=== PATIENT | female | born 1985 | race Caucasian/White ===

== ENCOUNTER 2025-06-21 08:51 | Emergency (ER) | payer BC, SELFPAY ==
--- OUTSIDE RECORDS SUMMARY | 2025-06-21 08:53 | XMS_ITS | Clinical Summary ---
Author Organization [facility] Address [address] [place] [id number] Care Team Providers Care Manager Social Services Name Role Phone Elsewhere, Pcp Primary Care Provider Unavailabl e Source Comments Patient records contain information from all sites at [facility]. For routine questions regarding patient records, call [phone] during business hours, M-F 8:00 AM - 5:00 PM Central Time. Record requests for emergency care only can be directed to [phone] at any time.[facility] Allergies Active Allergy Reactions Criticality Noted Date Comments [place] Other (see comments) 02/01/2020 Red skin Sumatriptan Succinate Anaphylaxis 11/24/2017 Medications No known medications Active Problems Problem Noted Date Diagnosed Date Abnormal Pap Smear Cervix 11/24/2017 Overview (11/24/2017): Overview: 06/2008; 06/2014 - Colposcopy Recommended Nicotine Dependence Unspecified 09/10/2012 Immunizations Immunization Administration Dates Next Due 4vHPV (discontinued) 11/27/2009,09/20/2008 DTaP (Infanrix, [employer]) 11/27/2009 HepB, Unspecified 02/21/2005 Influenza, Unspecified 09/18/2007 Social History Tobacco Use Types Packs/Day Years Used Date Smoking Tobacco: Every Day Cigarettes Smokeless Tobacco: Current Tobacco Cessation:Ready to Q uit: Not Asked; Counseling Given: Not Answered Alcohol Use Standard Drinks/Week Comments Yes 0 (1 standard drink = 0.6 oz pur e alcohol) Socially [facility] Utilities Answer Date Recorded In the past 12 months has [facility], gas, oil, or water company threatened to shut off services in your home? Yes 11/04/2023 Hunger Vital Sign Answer Date Recorded Within the past 12 months, y ou worried that your food would run out before you got the money to buy more. Often true Within the past 12 months, t he food you bought just didn't last and you didn't have money to get more. Sometimes true PRAPARE - Transportation Answer Date Re corded In the past 12 months, has l ack of transportation kept you from medical appointments or from getting medications? No 10/17 In the past 12 months, has l ack of transportation kept you from meetings, work, or from getting things needed for daily living? No 11/04/2023 Housing Stability Answer Date Recorded What is your living situation today? 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 Last Filed Vital Signs Vital Sign Reading Time Taken Comments Blood Pressure 108/72 11/04/2023 1:09 PM 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 Pulse 76 02/01/2020 1:37 PM CDT Temperature 36.5 C (97.7 F) 11/04/2023 1:09 PM 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 Respiratory Rate 18 11/04/2023 1:09 PM 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 Oxygen Saturation 100% 11/04/2023 1:09 PM 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 Room air Inhaled Oxygen Concentration - - Weight 54.4 kg (119 lb 14.9 oz) 11/04/2023 1:09 PM 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 Height 157.8 cm (5' 2.13) 11/24/2017 1 0:48 AM 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 Body Mass Index 21.85 11/24/2017 10:48 AM 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 Plan of Treatment Health Maintenance Due Date Last Done Comments Cervical/Vaginal Cancer Screening 1983 HIV Screening 1983 Hepatitis C Screening 1983 Mammogram 1983 Tobacco Cessation counseling 1983 Pneumococcal vaccine (0-49 years) (1 of 2 - PCV) 2002 DTaP,Tdap,and Td Vaccines (3 - Tdap) 11/27/2019 11/27/2009, 11/27/2009, 03/07/1995 Lipid (Cholesterol) Screening 12/10/2023 12/10/2018 COVID-19 Vaccine (2023-2 5 season) 2024 Depression Screening (Annual PHQ-2) 11/17/2024 Influenza Vaccine (#1) 2025 09/18/2007 Hepatitis B Vaccines Completed 02/21/2005, 10/09/2001, 08/14/2001 HPV Vaccines Completed 09/10/2012, 11/27/2009, 09/20/2008 IPV Vaccines Aged Out No longer eligi ble based on patient's age to complete this topic Insurance [facility] Care Teams Manager Social Services Relationship Specialty Start Date End Date Elsewhere, Pcp PCP - General 12/06/19
--- OUTSIDE RECORDS SUMMARY | 2025-06-21 08:53 | XMS_ITS | Clinical Summary ---
Author Organization [facility] Address [address] [place] [id number] Care Team Providers Care School Counselor Name Role Phone Ariane Street Primary Care Provider [phone] Allergies Active Allergy Reactions Criticality Noted Date Comments Sumatriptan Shortness Of Breath 04/10/2007 (imitrex) Medications omeprazole 20 mg Delayed-Releas e capsule Take 20 mg by mouth once daily if needed for GI Upset. Active methocarbamoL 500 mg tabletIndicati ons:Muscle spasm Take 1 Tablet (500 mg) by mouth every 6 hours if needed for Muscle Spasm. 30 Tablet 06/09/20 25 Active acetaminophen 500 mg tabletIndicati ons:Closed fracture of multiple ribs of left side, initial encounter Take 2 Tablets (1,000 mg) by mouth four times daily. Max acetaminophen dose: 4000mg in 24 hrs. 30 Tablet 03/08/2025 1:16 PM CDT 03/08/20 025 Discontin ued(*Med complete/ Regimen complete/ Level of care change) lidocaine 4 % topical patchIndicatio ns:Closed fracture of multiple ribs of left side, initial encounter Apply to intact skin to cover most painful area for max 12hr per 24hr period. 14 Patch 03/08/2025 1:16 PM CDT 03/09/20 25 025 Discontin ued(*Med complete/ Regimen complete/ Level of care change) nicotine 2 mg lozengeIndicat ions:Tobacco use disorder Place 1 Lozenge (2 mg) in mouth, between cheek & gum every hour while awake as needed for Nicotine Craving. 48 Each 03/08/2025 1:16 PM CDT 03/08/20 25 025 Discontin ued(*Med complete/ Regimen complete/ Level of care change) sennosides 8.6 mg tabletIndicati ons:Closed fracture of multiple ribs of left side, initial encounter Take 2 Tablets (17.2 mg) by mouth 2 times daily if needed for Constipation. 30 Tablet 03/08/2025 1:16 PM CDT 03/08/20 25 025 Discontin ued(*Med complete/ Regimen complete/ Level of care change) ibuprofen 600 mg tabletIndicati ons:Closed fracture of multiple ribs of left side, initial encounter Take 1 Tablet (600 mg) by mouth 3 times daily if needed for Pain. Maximum of 3200 mg in 24 hours. 30 Tablet 03/08/2025 1:16 PM CDT 03/08/20 25 025 Discontin ued(*Med complete/ Regimen complete/ Level of care change) traMADoL 50 mg tabletIndicati ons:Closed fracture of multiple ribs of left side with routine healing, subsequent encounter Take 1 Tablet (50 mg) by mouth 2 times daily if needed for Pain. 40 Tablet 03/10/20 25 025 Discontin ued(*Med complete/ Regimen complete/ Level of care change) hydrOXYzine HCL 10 mg tabletIndicati ons:Anxiety Take 1 Tablet (10 mg) by mouth every 6 hours if needed for Anxiety. 30 Tablet 2 03/10/20 25 025 Discontin ued(*Med complete/ Regimen complete/ Level of care change) methocarbamoL 500 mg tabletIndicati ons:Closed fracture of multiple ribs of left side, initial encounter Take 1.5 Tablets (750 mg) by mouth four times daily. 20 Tablet 03/17/20 25 025 Discontin ued(*Med complete/ Regimen complete/ Level of care change) Active Problems Problem Noted Date Diagnosed Date Adnexal mass 06/07/2025 High-risk human papillomavir us (HPV) DNA detected in cervical specimen, not type 16 or 18 05/25/2025 Overview (05/25/2025): 06/2008 LSIL 09/2008 Dennis: cervicitis 11/2009 NIL 12/2010 ASCUS/HPV negative 03/2013 NIL 06/2014 LSIL 11/2018 NIL/HPV negative 04/2025 UNS/HPV+, HPV 16/18 negative Plan: Repeat Pap no later than 4 months Ovarian cyst, right 03/06/2025 Traumatic pneumothorax 03/06/2025 Hemothorax on left 03/06/2025 Closed fracture of multiple ribs of left side Tobacco use disorder 09/10/2012 Neurodermatitis 04/13/2007 Dysthymic disorder 12/01/2006 Resolved Problems Problem Noted Date Diagnosed Date Resolved Date Headache(784.0) 12/01/2006 04/13/2007 Encounters Date Type Department Care Team Description 06/21/2025 Nurse Triage [facility] [address] [place] [address] PA Questions 06/21/2025 Telephone [facility] [address] [facility] [address] [place] [address] Damián Osborn MD Questions (surgery) 06/20/2025 Telephone [facility] [address] [facility] [address] [place] [address] Damián Osborn MD Questions (Surgery on 06/22/2025) 06/07/2025 Telephone [facility] [address] [place] [address] PA Refill Request (methocarbamoL 500 mg tablet /) 05/25/2025 Telephone [facility] [address] [place] [address] Damián Osborn MD Pap Plan 05/24/2025 2:50 PM CDT Office Visit [facility] [address] [place] [address] PA Preoperative Exam ([place]-Dr. Osborn-06/22/25-[place] py) 05/24/2025 Travel 05/06/2025 Telephone [facility] [address] [place] [address] Damián Osborn MD Questions (PRE OP ) 05/04/2025 Telephone [facility] [address] [place] [address] Damián Osborn MD Surgery Scheduled 05/03/2025 3:40 PM CDT Office Visit [facility] [address] [place] [address] Damián Osborn MD Consult (Right ovarian cyst) 05/03/2025 Travel 05/02/2025 Orders Only [facility] [address] [place] [address] PA <No scans attached> 04/29/2025 1:45 PM CDT Ancillary Procedure [facility] [address] [place] [address] 04/29/2025 Travel from Last 3 Months Immunizations Immunization Administration Dates Next Due Hepatitis B (Adult) 02/21/2005,10/09/2001,2000 Human Papilloma Virus Vaccine 09/10/2012, 010,09/20/2008 Influenza, IIV3 (Age >=3 years) 09/18/2007 Td (Age >=7 Years) 03/07/1998 Tdap 11/27/2009 Family History Medical History Relation Name Comments Heart attack Father , wa s using drugs Cancer-breast Maternal Aunt Cancer Maternal Grandmother non-Hod gkins lymphoma No Known Problems Mother Diabetes Paternal Aunt Diabetes Paternal Grandmother Heart Disease Paternal Grandmother Relation Name Status Comments Father Maternal Aunt Maternal Grandmother Mother Paternal Aunt Paternal Grandmother Social History Tobacco Use Types Packs/Day Years Used Date Smoking Tobacco: Former Cigarettes Q uit: 11/14/2014 Smokeless Tobacco: Never Tobacco Cessation:Counseling Given: Not Answered Comments:ready to quit Alcohol Use Standard Drinks/Week Comments Yes 0 (1 standard drink = 0.6 oz pur e alcohol) occassionally PHQ-2 Answer Date Recorded PHQ-2 TOTAL SCORE 1 05/24/2025 Social Connections Answer Date Recorded Do you often feel lonely or isolated from those around you? 0 03/07/2025 Financial Resource Strain Answer Date R ecorded Difficulty of Paying Living Expenses 3 03/07/2025 Difficulty of Paying Living Expenses Not on file 03/07/2025 Food Insecurity Answer Date Recorded Do you worry your food will run out before you are able to buy more? 1 03/15/2025 Transportation Needs Answer Date Record ed Does lack of transportation keep you from medica l appointments? 1 03/15/2025 Does lack of transportation keep you from work, meetings or getting things that you need? 1 03/15/2025 Housing Stability Answer Date Recorded What is your housing situation today? 1 03/15/2025 Interpersonal Safety Answer Date Record ed Are you being hit, kicked, p ushed or yelled at (see row info)? No 03/07/2025 Interpersonal Safety Abuse 12 - 18 Not on file 03/07/2025 Interpersonal Safety Ambulatory Vulnerability No t on file 03/07/2025 Utilities Answer Date Recorded Do you have trouble paying f or utilities (for example, heat, electricity, water, phone)? 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 Gender Identity Not on file Sexual Orientation Not on file Occupation Industry Job Start Date Job End Date Not on file Not on file Not on file Not on file Not on file Not on file Not on file Not on file Obstetrics History Para Term AB IAB SAB Ectopic Multiple Livin g Live Births 3 2 2 0 1 0 0 1 0 2 3 Date Outcome GA Total Labor Labor/2nd/3rd Weight Sex Type Anes PTL Shira A1 A5 Name Clin 2001 Term 37w 0d 3.26 kg (7 lb 3 oz) F VAGINA L VACU Intrat hecal Livin g 8 9 [place] Delivery Location:[facility] 2006 Ectopic ECTOPI C Decea sed 2007 Term 39w 0d 3.46 kg (7 lb 10 oz) M Vag Intrat hecal Livin g 8 9 Jaedy n [place] Delivery Location:[facility] Last Filed Vital Signs Vital Sign Reading Time Taken Comments Blood Pressure 112/77 05/24/2025 2:39 PM CDT Pulse 88 05/24/2025 2:39 PM CDT Temperature 36.9 C (98.4 F) 03/08/2025 7:51 AM CDT Respiratory Rate 18 03/08/2025 7:51 AM CDT Oxygen Saturation 98% 05/24/2025 2:39 PM CDT Inhaled Oxygen Concentration - - Weight 60.3 kg (133 lb) 05/24/2025 2:39 PM CDT Height 157 cm (5' 1.81) 05/24/2025 2:39 PM CDT Body Mass Index 24.48 05/24/2025 2:39 PM CDT Plan of Treatment Upcoming Encounters Date Type Department Care Team (Latest Contact Info) Description 06/22/2025 7:15 AM CDT Hospital Encounter [address] [address] Damián Osborn MD [address] [place] [id number] Adnexal mass (Primary Dx) 06/22/2025 7:15 AM CDT - 06/22/2025 9:36 AM CDT Surgery [address] [address] Damián Osborn MD [address] [place] [address] [phone] Robot assisted laparoscopic right ovarian cystectomy, bilateral salpingectomy 07/12/2025 2:20 PM CDT Office [place] [facility] [address] [place] [address] Damián Osborn MD [address] [place] [address] [phone] Scheduled Procedures Name Priority Associated Diagnoses Date/Ti me ROBOTIC ASSISTED LAPAROSCOPIC DIAGNOSTIC XI Tier 3: within 90 days Adnexal mass 06/22/2025 7:15 AM CDT Health Maintenance Due Date Last Done Comments Tetanus booster 11/27/2019 11/27/2009, 03/07/1998 COVID-19 vaccine series (2023- season) 2024 Influenza Vaccine (#1) 2025 09/18/2007 Pap test for age 21-65 08/03/2025 , 12/10/2018, 12/10/2018, Additional history exists BMI (ht and wt on same day) for age 18+ 05/24/2026 05/24/2025, 02/15/2019, 02/04/2019, Additional history exists Depression screening for age 12+ 05/24/2026 05/24/2025, 03/24/2019, 12/10/2018, Additional history exists Hepatitis B series for 19+ Completed 02/21, 10/09/2001, 08/14/2001 HIV for age 15-65 Completed 07/07/2014, 09/18/2007 Hepatitis C screening for age 18-79 Completed 07/07/2014 Pneumococcal series for age 6-49 Aged Out No longer eligible based on patient's age to complete this topic Goals Goal Patient Goal Type Associated Problems Recent Progress Patient-Stated? Author Autogenera edith Goal Care Plan Autogenerated Problem No Feli Orellana, [facility] Procedures Procedure Name Priority Date/Time Associated Diagnosis Comments PATHOLOGY LABORATORY DIRECTOR THIN PREP PAP SCREEN IMAGED- Unsuccessful Attempt Routine 05/03/2025 4:31 PM CDT Screening for cervical cancer HPV HIGH RISK Routine 05/03/2025 4:31 PM CDT Screening for cervical cancer US PELVIS COMPLETE TA AND TV Routine 04/29/2025 2:15 PM CDT Right ovarian cyst ANTI HIV 1/2 Routine 07/07/2014 2:11 PM CDT Screening for STDs (sexually transmitted diseases) ANTI HCV Routine 07/07/2014 2:11 PM CDT Screening for STDs (sexually transmitted diseases) from Last 3 Months or Most Recently Relevant to Health Maintenance Results * PATHOLOGY LABORATORY DIRECTOR THIN PREP PAP SCREEN IMAGED (05/03/2025 4:31 PM CDT) - Unsuccessful Attempt Case Report Gynecologic Cytology Report Case: [id number] Authorizing Provider: Damián Osborn MD Collected: 05/03/2025 1631 Ordering Location: [facility] Received: 05/03/2025 1632 Clinic First Screen: Baccam Minie Rescreen: Nicolette Reid Specimen: PATHOLOGY LABORATORY DIRECTOR ThinPrep Vial Screening, Cervical 05/25/2025 8:00 AM CDT [facility] INTERPRETATION /RESULT UNSATISFACTORY FOR EVALUATION (UNS) (none) 05/25/2025 8:00 AM CDT [facility] at 0800 CDT ORGANISM(S) Shift in lobito suggestive of bacterial vaginosis 05/25/2025 8:00 AM CDT [facility] SPECIMEN ADEQUACY Specimen processed and examined, but unsatisfactory for evaluation of epithelial abnormality because of: Scant cellularity 05/25/2025 8:00 AM CDT [facility] HPV REQUEST HPV and PAP 05/25/2025 8:00 AM CDT [facility] Date of LMP 04/29/2025 05/25/2025 8:00 AM CDT [facility] Last Pap Date 12/10/18 05/25/2025 8:00 AM CDT [facility] Last Pap Result NIL 05/25/2025 8:00 AM CDT [facility] Abnormal Pap or Dennis Bx in last 5 years No 05/25/2025 8:00 AM CDT [facility] Menstrual Status Regular Periods 05/25/2025 8:00 AM CDT [facility] Dennis Bx Done Today No 05/25/2025 8:00 AM CDT [facility] Additional Information None given 05/25/2025 8:00 AM CDT [facility] Comment: Cytology is screened at [facility] - [address], [place] [address] and [facility] - [address] [place] [address], [place] [address] and [facility] - [address] [place] [address] Interpreted at [facility] - [address], [place] [address] Automated Review Failed 05/25/2025 8:00 AM CDT [facility] Comment:Processing failed, m anual screening required. ThinPrep Imaging System, [employer] ANCILLARY TESTING PATHOLOGY LABORATORY DIRECTOR HPV Ordered, Please see separate report 05/25/2025 8:00 AM CDT [facility] Note The pap test is a screening technique, not a diagnostic procedure. It is used primarily to screen for squamous cancers and precursor lesions. Published studies have shown that it is subject to both false negative and false positive results. The pap test should not be used as the sole means to diagnose or exclude pre-malignant and malignant lesions. 05/25/2025 8:00 AM CDT [facility] Other (Cervical) Non-Blood / Unknown 05/03/2025 4:31 PM CDT 05/03/2025 4:32 PM CDT us Damián Osborn MD PATHOLOGY/CYTOLOGY Final Resul t [facility] [address] [place] [address], * (ABNORMAL) HPV HIGH RISK (05/03/2025 4:31 PM CDT) TYPE 16 Negative Negative 05/06/2025 2:36 PM CDT [facility] TYPE 18 Negative Negative 05/06/2025 2:36 PM CDT [facility] OTHER HIGH RISK TYPES Positive(A) Negative 05/06/2025 2:36 PM CDT [facility] Other (Cervical) Non-Blood / Unknown 05/03/2025 4:31 PM CDT 05/04/2025 2:[address] [facility] - 05/06/2025 2:36 PM CDT Specimen is positive for the DNA of any one of, or combination of, the following high risk HPV types: 31, 33, 35, 39, 45, 51, 52, 56, 58, 59, 66, 68. HPV types 16 and 18 DNA were undetectable or below the pre-set threshold. Methodology: Justa Nady[employer] 4800 HPV Test us Damián Osborn MD MICROBIOLOGY Final Result [facility] [address] [place] [address], [place] * US PELVIS COMPLETE TA AND TV (04/29/2025 2:15 PM CDT) Anatomical Region Laterality Modality Pelvis Ultrasound 04/29/2025 3:34 PM CDT Impressions 04/29/2025 3:34 PM CDT 9.3 cm simple right ovarian cyst. Follow-up ultrasound in 12 months recommended. Dictated by Damián Lomas MD @ 04/29/2025 3:34:59 PM (Electronically Signed) Narrative 04/29/2025 3:34 PM CDT For Patients: As a result of the Cures Act, medical imaging exams and procedure reports are released immediately into your electronic medical record. You may view this report before your referring provider. If you have questions, please contact your health care provider. INDICATION: Right ovarian cyst COMPARISON: CT 02/05/2019 TECHNIQUE: 2D adair-scale and color Doppler images were acquired of the pelvis using a transabdominal and transvaginal approach. Transvaginal imaging performed to better visualize the endometrial stripe and ovaries. FINDINGS: Sonographic images demonstrate a normal size and smooth outer contour of the uterus. Uterus measures 8.3 cm in length by 4.9 cm in AP diameter by 3.5 cm in transverse dimension. The myometrium has a normal uniform echotexture. The endometrial lining appears normal and measures 6 mm in composite thickness. The right ovary measures 10.2 x 7.6 x 6.9 cm in size and the left ovary measures 2.7 x 1.2 x 1.2 cm. The ovaries demonstrate normal arterial and venous blood flow on color Doppler analysis. There are no suspicious fluid collections within the cul-de-sac. Large circumscribed anechoic right ovarian cyst measures 9.3 x 6.9 x 6.0 cm. No internal blood flow and no papillary projection. Procedure Note Damián Lomas MD - 04/29/2025 For Patients: As a result of the Century Cures Act, medical imagingexams and procedure reports are released immediately into your electronicmedical record. You may view this report before your referring provider.If you have questions, please contact your health care provider. INDICATION: Right ovarian cyst COMPARISON: CT 02/05/2019 TECHNIQUE: 2D adair-scale and color Doppler images were acquired of the pelvis using atransabdominal and transvaginal approach. Transvaginal imaging performedto better visualize the endometrial stripe and ovaries. FINDINGS: Sonographic images demonstrate a normal size and smooth outer contour ofthe uterus. Uterus measures 8.3 cm in length by 4.9 cm in AP diameter by3.5 cm in transverse dimension. The myometrium has a normal uniformechotexture. The endometrial lining appears normal and measures 6 mm incomposite thickness. The right ovary measures 10.2 x 7.6 x 6.9 cm in size and the left ovarymeasures 2.7 x 1.2 x 1.2 cm. The ovaries demonstrate normal arterial andvenous blood flow on color Doppler analysis. There are no suspicious fluidcollections within the cul-de-sac. Large circumscribed anechoic rightovarian cyst measures 9.3 x 6.9 x 6.0 cm. No internal blood flow and nopapillary projection. IMPRESSION: 9.3 cm simple right ovarian cyst. Follow-up ultrasound in 12 monthsrecommended. Dictated by Damián Lomas MD @ 04/29/2025 3:34:59 PM (Electronically Signed) us Ariane CURRIE Final Resu lt * ANTI HCV (07/07/2014 2:11 PM CDT) HEPATITIS C ANTIBODY Non-Reacti ve Non-Reacti ve 07/07/2014 7:44 PM CDT [facility] Blood specimen (specimen) BLOOD SPECIMEN / Unknown Venipuncture / Unknown 07/07/2014 2:11 PM CDT 07/07/2014 2:11 PM CDT Narrative [facility] - 07/07/2014 7:44 PM CDT Antibodies to HCV not detected; does not exclude the possibility of exposure to HCV. Michelle Downs TAN ROOM SUPERVISOR SEND OUTS Final Result [facility] [address] [place] [address], * ANTI HIV 1/2 (07/07/2014 2:11 PM CDT) HIV-1/HIV-2 ANTIBODY Non-Reacti ve Non-Reacti ve 07/07/2014 7:41 PM CDT [facility] Blood specimen (specimen) BLOOD SPECIMEN / Unknown Venipuncture / Unknown 07/07/2014 2:11 PM CDT 07/07/2014 2:11 PM CDT Narrative [facility] - 07/07/2014 7:41 PM CDT HIV-1 p24 and HIV-1/HIV-2 Ab not detected Michelle Downs NP SEND OUTS Final Result Performing Organization Address City/[facility]/ZIP Co de Phone Number [facility] [address] [place] [address], from Last 3 Months or Most Recently Relevant to Health Maintenance Additional Health Concerns Active Problems Noted Date Diagnosed Date Autogenerated Problem 05/04/2025 [place] [address] Advance Directives * Full Code (Latest Code Status on File) Date Activated Date Inactivated Comments 03/06/2025 3:52 PM 03/08/2025 3:40 PM Question Answer Comments Code Status Discussion: Reviewed Preferences * Full Code Date Activated Date Inactivated Comments 03/18/2011 6:13 AM 03/18/2011 12:29 PM Care Teams School Counselor Relationship Specialty Start Date End Date [address] [place] [address] [place] [address] PCP - General Physician Portal Developer 05/26/25
[2025-06-21 08:58] VITALS: BP 100/68; PULSE 78; RESP 18; TEMP 36.3; O2SAT 99; BMI 25.6
--- NOTE | 2025-06-21 09:08 | CRLHL7_ITS ---
For Patients: As a result of the Century Cures Act, medical imaging exams and procedure reports are released immediately into your electronic medical record. You may view this report before your referring provider. If you have questions, please contact your health care provider. INDICATION: Right-sided pelvic pain. TECHNIQUE: Ultrasound pelvis transabdominal and transvaginal for better assessment or to better visualize the endometrium. Real-time sonographic images with spectral and color Doppler imaging of the ovaries were obtained. COMPARISON: Pelvic ultrasound 04/29/2025 FINDINGS: Uterus: 8.1 x 3.7 x 5.1 cm. Normal echotexture of the myometrium. No masses. Endometrium: Transvaginal imaging was performed to better evaluate the endometrium. Endometrial thickness measures 10 mm. No sign of endometrial mass or fluid. Right ovary measures 10 x 6.8 x 8.4 centimeters including the large cyst. Left ovary measures 3 x 1.8 x 1.9 centimeters. The right ovarian cyst measures 9.7 x 7.7 x 6.4 centimeters, previously 9.3 x 6.9 x 6 centimeters. Normal arterial and venous blood flow is demonstrated in both ovaries. Cul-de-sac: No significant free fluid. IMPRESSION: Increased size of the right simple ovarian cyst, though differences are likely due to measurement technique (O-RADS 2). Size of the cyst increases risk for ovarian torsion, though there is no evidence of ovarian torsion. Dictated by Yady Bazan MD @ 06/21/2025 10:26:40 AM (Electronically Signed)
[2025-06-21 09:11] LABS: Appearance Urine Clear (Clear)
--- NOTE | 2025-06-21 09:27 | ED.FEMALEGU ---
HPI - Female Genitourinary General Date Seen: 06/21/25 Chief complaint: Urogenital Problems, Female Stated complaint: Ovarian pain Time Seen by Provider: 06/21/25 09:04 Source: patient Mode of arrival: ambulatory Limitations: no limitations History of Present Illness HPI Narrative: Patient is a 40-year-old female presenting to the emergency department for right pelvic pain. She states she began to have this pain that started this morning at 03:30. It woke her up from sleep. She has never had pain like this before. States she knows she has a 9.3 cm right ovarian since that was found incidentally and she is actually scheduled to have surgery to remove it tomorrow up in [place]. She has never had any pain from this cyst before. She took a tramadol which makes the pain bearable but is still quite severe she states. Initially went to urgent care and was sent to the emergency department for imaging. Denies fevers, chills, chest pain, shortness of breath, flank pain, dysuria, polyuria. No other concerns noted at this time. Previous abdominal surgeries include removal of her fallopian tubes indurated Related Data Home Medications ?Medication ?Instructions ?Recorded ?Confirmed acetaminophen [Tylenol] PO 04/29/24 06/21/25 ibuprofen PO 04/29/24 06/21/25 omeprazole [Prilosec] PO 04/29/24 06/21/25 tramadol PO 04/29/24 06/21/25 Allergies Allergy/AdvReac Type Severity Reaction Status Date / Time almond Allergy Verified 06/21/25 10:57 latex Allergy Verified 06/21/25 10:57 sumatriptan (From Imitrex) Allergy Verified 06/21/25 10:57 Review of Systems Status of ROS: Reports: 10 or more systems reviewed and unremarkable except as noted in History and below Exam Narrative: Exam Narrative: Const: Well-nourished, Well-developed, in a moderate distress Eyes: PERRL, no conjunctival injection, and symmetrical lids HENT: Atraumatic external nose and ears. Moist mucous membranes. Neck: Symmetric, trachea midline, No thyromegaly. CVS: RRR, No murmurs or gallops. Peripheral pulses 2+ and equal in all extremities RESP: Unlabored respiratory effort. Clear to auscultation bilaterally. GI: Nontender/Nondistended, No rebound or guarding. : right pelvic tenderness MSK:Extremities w/o deformity, Normal Active ROM Skin: Warm, Dry. No rashes or lesions. Neuro: Normal Muscle tone, No focal neurological deficits. Psych: Awake, Alert, & Oriented x3. Appropriate mood and affect. Const: Vital Signs, click to edit/add: Vital Signs - 24 hr 06/21/25 08:58 Temperature 97.3 F L Pulse Rate [Pulse Oximeter] 78 Respiratory Rate 18 Blood Pressure [Ri t Upper Arm] 100/68 Pulse Oximetry 99 Oxygen Delivery Me thod Room Air Course Vital Signs Vital signs: Initial Vital Signs Temperature 97.3 F L 06/21/25 08:58 Temperature Source Temporal Artery Scan 06/21/25 08:58 Pulse Rate 78 06/21/25 08:58 Respiratory Rate 18 06/21/25 08:58 Blood Pressure 100/68 06/21/25 08:58 Blood Pressure Mean 78 06/21/25 08:58 Pulse Oximetry 99 06/21/25 08:58 Oxygen Delivery Method Room Air 06/21/25 08:58 Vital Signs Temperature 97.3 F L 06/21/25 08:58 Pulse Rate 78 06/21/25 08:58 Respiratory Rate 18 06/21/25 08:58 Blood Pressure 100/68 06/21/25 08:58 Pulse Oximetry 99 06/21/25 08:58 Oxygen Delivery Method Room Air 06/21/25 08:58 Temperature 97.3 F L 06/21/25 08:58 Pulse Rate 78 06/21/25 08:58 Respiratory Rate 18 06/21/25 08:58 Blood Pressure 100/68 06/21/25 08:58 Pulse Oximetry 99 06/21/25 08:58 Oxygen Delivery Method Room Air 06/21/25 08:58 Medications Administered Medications: Discontinued Medications Generic Name Dose Route Start Last Admin Trade Name Freq PRN Reason Stop Dose Admin Morphine Sulfate 4 mg 06/21/25 10:34 06/21/25 10:48 Morphine 4 Mg/Ml Inj IVP 06/21/25 10:35 4 mg ONCE ONE Administration MDM - Female Genitourinary MDM Narrative Medical decision making narrative: Patient is a 40-year-old female presenting for right lower quadrant/right pelvic pain. Some much pain she was having I was concerned about ovarian torsion and immediately ordered an ultrasound. Patient went to get her ultrasound. Did order CBC, BMP, urinalysis also. Other differentials includes appendicitis, colitis, ovarian abscess, hemorrhagic cyst. Based on location seems unlikely to be gallbladder/liver disease, pancreatitis, diverticulitis. Patient states she is unable to get due to previous removal of her fallopian tube. Ultrasound returned showing a previous seen cyst. Patient is still having hip pain while doing ultrasound and I do not believe this is an intermittent torsion. Will do a CT scan for better evaluation of any possible causes. Lab work shows no concerning findings. Did give her morphine for pain which made her feel much better. CT scan returned showing nonspecific diffuse mild colonic edema. Considering how localized her pain is this seems unlikely to be related to her symptoms and is an incidental finding. I do believe her pain is most likely from with Marge test and I do believe he is safe for discharge. Will provide oxycodone be instymeds to get her through till her surgery tomorrow. She did develop some heartburn after the CT scan him a GI cocktail was given. She is agreeable to this plan. Lab Data Labs: Lab Results 06/21/25 06/21/25 Range/Units 09:05 09:23 WBC 9.19 (4.50-11.00) K/uL RBC 3.81 L (4.00-5.20) m/uL Hgb 12.3 (12.0-16.0) gm/dL Hct 37.5 (33.0-51.0) % MCV 98 (80-100) fL MCH 32 (26-34) pg MCHC 33 (32-36) gm/dL RDW Coeff of Leticia 13.3 (11.5-15.5) % Plt Count 281 (140-440) K/uL Neut % (Auto) 78.8 H (42.0-72.0) % Lymph % (Auto) 12.1 L (20-44) % [place] % (Auto) 8.7 (0.0-11.0) % Eos % (Auto) 0.1 (0.0-7.0) % Baso % (Auto) 0.2 (0.0-3.0) % Neut # (Auto) 7.20 H (1.7-7.0) K/uL Lymph # (Auto) 1.10 (0.90-2.90) K/uL [place] # (Auto) 0.80 (0.00-0.90) K/UL Eos # (Auto) 0.01 (0.00-0.50) K/uL Baso # (Auto) 0.02 (0.00-0.30) K/uL Abs Immat Gran (auto) 0.01 (0.00-0.30) K/uL Imm/Tot Granulo (auto) 0.1 % Sodium 135 (135-149) mmol/L Potassium 3.6 (3.6-5.1) mmol/L Chloride 105 (96-114) mmol/L Carbon Dioxide 25 (20-32) mmol/L Anion Gap 5 L (7-15) mEq/L BUN 7 (5-24) mg/dL Creatinine 0.5 (0.5-1.5) mg/dL Estimated Creat Clear 110.60 Estimated GFR 120 ml/min Glucose 112 (60-115) mg/dL Calcium 9.1 (8.4-10.6) mg/dL Urine Color Yellow (Yellow) Urine Appearance Clear (Clear) Urine pH 5.5 (5.0-8.5) Ur Specific [place] 1.020 (1.000-1.030) Urine Protein Negative (Negative) Urine Glucose (UA) Negative (Negative) Urine Ketones 2+ A (Negative) Urine Blood Negative (Negative) Urine Nitrite Negative (Negative) Urine Bilirubin Negative (Negative) Urine Urobilinogen 0.2 (0.2-1.0) Ur Leukocyte Esterase Negative (Negative) Urine RBC 0-2 (0-2) Urine WBC 0-2 (0-5) Ur Squamous Epith Cells Few (None-Few) Urine Bacteria None (None) Imaging Data Pelvic/transvaginal ultrasound: Attestation: I have reviewed the pertinent imaging results. Radiologist's impression: Increased size of the right simple ovarian cyst, though differences are likely due to measurement technique (O-RADS 2). Size of the cyst increases risk for ovarian torsion, though there is no evidence of ovarian torsion. Dictated by Yady Bazan MD @ 06/21/2025 10:26:[address] scan abdomen pelvis: Attestation: I have reviewed the pertinent imaging results. Radiologist's impression: 1. Mild submucosal edema is seen throughout the colon. Findings may represent infectious or inflammatory colitis. 2. Redemonstration of 9.9 x 8.3 centimeter pelvic cystic lesion, better characterized on same day ultrasound. Please note that all CT scans at this facility use dose modulation, iterative reconstruction, and/or weight-based dosing when appropriate to reduce radiation dose to as low as reasonably achievable. Dictated by Thomas Chapman MD @ 06/21/2025 11:15:26 AM Discharge Plan Discharge Clinical Impression: Cyst of right ovary Patient Disposition: Home, Self-Care Condition: Improved Instructions: Ovarian Cyst (ED) Additional Instructions: Take the Percocet as needed for pain. Return to emergency department for new or worsening symptoms. There was some mild diffuse edema of your colon. I do not believe this is was acutely causing her issues. Is very well may not be of any concern for any signs of infection/inflammatory colitis. If he continue to have issues I do recommend close follow-up with your primary care provider for possible colonoscopy. Prescriptions: No Action acetaminophen [Tylenol] PO ibuprofen PO omeprazole [Prilosec] PO tramadol PO Follow Up/Referrals: Provider,Not a Local [Primary Care Provider, Family Practice] Stand Alone Forms: [facility] Info Instructions
[2025-06-21 09:29] LABS: Hematocrit 37.5 % (33.0-51.0); Hemoglobin* 12.3 gm/dL (12.0-16.0); Immature Granulocytes Abs Auto 0.01 K/uL (0.00-0.30); Immature Granulocytes Pct Auto 0.1 %; Mean Corpuscular HGB Conc 33 gm/dL (32-36); Mean Corpuscular Hemoglobin 32 pg (26-34); Mean Corpuscular Volume 98 fL (80-100); RDW Coefficient of Variation % 13.3 % (11.5-15.5); Red Blood Count 3.81 m/uL (4.00-5.20); White Blood Count* 9.19 K/uL (4.50-11.00)
[2025-06-21 09:32] LABS: Lymphocytes Absolute Auto 1.10 K/uL (0.90-2.90)
[2025-06-21 09:33] LABS: Slide Review Reflex No
[2025-06-21 09:43] LABS: Chloride* 105 mmol/L (96-114); Potassium* 3.6 mmol/L (3.6-5.1); Sodium* 135 mmol/L (135-149)
[2025-06-21 09:46] LABS: Blood Urea Nitrogen* 7 mg/dL (5-24); Creatinine* 0.5 mg/dL (0.5-1.5); Est. Creatinine Clearance* 110.60; Estimated Glomerular Filt Rate 120 ml/min
[2025-06-21 09:47] LABS: Anion Gap 5 mEq/L (7-15); Calcium* 9.1 mg/dL (8.4-10.6); Carbon Dioxide* 25 mmol/L (20-32); Glucose* 112 mg/dL (60-115)
--- NOTE | 2025-06-21 10:34 | CRLHL7_ITS ---
For Patients: As a result of the Century Cures Act, medical imaging exams and procedure reports are released immediately into your electronic medical record. You may view this report before your referring provider. If you have questions, please contact your health care provider. INDICATION: RLQ PAIN TECHNIQUE: CT of the abdomen and pelvis was obtained with 66 mL of Isovue 370 intravenous contrast. Please note that all CT scans at this facility use dose modulation, iterative reconstruction, and/or weight-based dosing when appropriate to reduce radiation dose to as low as reasonably achievable. COMPARISON: Same day ultrasound. FINDINGS: Lower thorax: Subacute left-sided rib fractures. Liver and biliary tree: Normal. Gallbladder: Status post cholecystectomy. Spleen: Normal. Pancreas: Normal. Adrenal glands: Normal. Kidneys and ureters: No hydronephrosis or obstructing renal calculi. Subcentimeter hypoattenuating lesions are too small to characterize and are favored to represent cysts. Gastrointestinal tract: Mild submucosal edema is seen throughout the colon. Moderate stool burden in the transverse colon. No evidence of bowel obstruction. Peritoneal cavity: Trace free fluid is seen within the pelvis. Bladder: Decompressed. Pelvic organs: 9.9 x 8.3 centimeter pelvic cystic lesion (2/103). Vasculature: Normal. Lymph nodes: Normal. Abdominal wall: Trace fat containing periumbilical hernia. Musculoskeletal: Mild degenerative changes of the bilateral hips. IMPRESSION: 1. Mild submucosal edema is seen throughout the colon. Findings may represent infectious or inflammatory colitis. 2. Redemonstration of 9.9 x 8.3 centimeter pelvic cystic lesion, better characterized on same day ultrasound. Please note that all CT scans at this facility use dose modulation, iterative reconstruction, and/or weight-based dosing when appropriate to reduce radiation dose to as low as reasonably achievable. Dictated by Thomas Chapman MD @ 06/21/2025 11:15:26 AM (Electronically Signed)
[2025-06-21] MEDS: MORPHINE 4 MG/ML INJ IVP (10:48)
[2025-06-21] MEDS: GI COCKTAIL (VISC LIDO/ANTACID) 30 ML PO (11:30)
[2025-06-21 11:47] VITALS: BP 123/88; PULSE 73; RESP 18; O2SAT 98
== END 2025-06-21 11:48 | disposition home or self-care (01) ==
PROVIDERS: Emergency Provider Student in an Organized Health Care Education/Training Program
DX: N83.201 Unspecified ovarian cyst, right side (principal)
CPT/HCPCS: 36415; 74177; 76830; 76856; 80048; 81001; 85025; 93976; 96374; 99284; A9270; J2270; Q9967